=== PATIENT | male | born 1960 | race Caucasian/White ===

== ENCOUNTER 2019-04-19 05:35 | Day surgery (SDC) | payer OTHER ==
[2019-04-19] VITALS (12 sets, daily range): BP systolic 114–139; BP diastolic 70–84; PULSE 64–101; TEMP 97.5–98.4
[~2019-04-19] VITALS: Ht 177.8 cm; Wt 99.5 kg
[2019-04-19] MEDS ORDERED: LIPITOR20 MG PO (05:58)
[2019-04-19] MEDS ORDERED: B-121000 MCG PO (05:58)
[2019-04-19] MEDS ORDERED: ZANTAC 150MG T150 MG PO (05:58)
[2019-04-19] MEDS ORDERED: MASON NATURAL2000 IU PO (05:59)
[2019-04-19] MEDS ORDERED: GLUCOPHAGE500 MG/TAB PO (06:00)
[2019-04-19] MEDS ORDERED: CELEBREX 200MG200 MG PO (06:00)
[2019-04-19] MEDS ORDERED: PROTONIX 40MG T40 MG PO (06:01)
[2019-04-19] MEDS ORDERED: CELEXA 20MG20 MG/TAB PO (06:01)
[2019-04-19] MEDS ORDERED: REQUIP 1MG T1 MG/TAB PO (06:01)
--- NOTE | 2019-04-19 11:00 | NUR ---
Patient arrived to floor from PACU via bed. Patient is sleepy but rouses easily. Patient is alert and oriented, answers questions appropriately. at bedside. Post op checks initated. Patient reports that pain is controlled. Denies further needs at this time, call light within reach.
--- NOTE | 2019-04-19 20:37 | NUR ---
Report given to DIANE Do
--- NOTE | 2019-04-19 21:25 | NUR ---
Patient going on a walk around the unit. Steady and denies any pain or dizziness. Pleasant and cooperative, IV saline locked at this time.
[2019-04-20 03:55] VITALS: BP 137/75; PULSE 88; TEMP 97.9
[2019-04-20 07:40] VITALS: BP 150/75; PULSE 86; TEMP 97.6
--- NOTE | 2019-04-20 08:00 | NUR ---
Patient resting in bed at this time. Patient denies pain or needs at this time. Call light within reach.
--- NOTE | 2019-04-20 10:19 | NUR ---
PHYLICIA met with the patient to complete initial assessment. The patient lives in [place] with his , Mabel. The patient does not use DME and reports independence with ADLs. The patient's PCP is Dr. Rodriguez from [facility] in [place]. The patient receives medications from [facility] in [place] and [place]. The patient does not have advanced directives in the EMR. The patient plans to return home upon discharge with Mabel providing transportation. There are no addtional needs at this time.
[2019-04-20 11:28] VITALS: BP 129/84; PULSE 75; TEMP 97.8
--- NOTE | 2019-04-20 14:12 | NUR ---
Initial visit; Patient thanked Physician Office Specialist for looking in on him and offering spiritual care.
[2019-04-20 16:02] VITALS: BP 124/76; PULSE 83; TEMP 98.3
[2019-04-20] MEDS ORDERED: ULTRAM 50MG TAB50 MG PO (16:39)
--- NOTE | 2019-04-20 17:45 | NUR ---
Discharge teaching completed. Discharge instructions reviewed, follow up appointment discussed, importance of keeping appointment stressed. Discharge diet instructions/education provided. Patient verbalized understanding. INT removed, catheter intact, hemostasis achieved. Patient escorted to visitor entrance, where he entered a private car.
== END 2019-04-20 17:45 | disposition home or self-care (01) ==
LOC: SDCO 05:35 → SURG 11:00 → SDCO 04-20 17:45
DX: K21.0 Gastro-esophageal reflux disease with esophagitis (principal); K44.9 Diaphragmatic hernia without obstruction or gangrene; E11.9 Type 2 diabetes mellitus without complications; Z80.1 Family history of malignant neoplasm of trachea, bronchus and lung; Z82.49 Family history of ischemic heart disease and other diseases of the circulatory system; Z79.84 Long term (current) use of oral hypoglycemic drugs
CPT/HCPCS: OP; J0690; J1100; J1170; J2175; J2270; J2310; J2405; J2704; J3010; J7120